=== PATIENT | male | born 1950 | race Caucasian/White ===

== ENCOUNTER 2016-12-12 05:40 | Day surgery (SDC) | payer BC, OTHER ==
[~2016-12-12] VITALS: Ht 177.8 cm; Wt 110.2 kg
--- NOTE | ~2016-12-12 | EKG ---
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 : 1950 Requested By: Bhavesh Oliva Order Number: [id number] MD: Piyush Bone Measurements Intervals [place] Rate: 55 P: 34 [place]: 165 QRS: -15 QRSD: 124 T: 29 QT: 465 QTc: 445 Interpretive Statements Sinus rhythm Nonspecific intraventricular conduction delay No previous ECG available for comparison Electronically Signed On 12-13-2016 8:07:23 CDT by Piyush Bone [email or web address] <ELECTRONICALLY SIGNED> By: Piyush Bone MD, [facility] 12/13/16 0807 09 Piyush Bone MD, FACC /EPI
--- NOTE | ~2016-12-12 | O ---
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 PROCEDURE: Right knee arthroscopy with debridement of patellofemoral chondromalacia and medial compartment chondromalacia and debridement of medial meniscus tear. HISTORY: This 66-year-old gentleman complains of progressive right knee pain. His history, clinical exam and MRI scan are consistent with moderate generalized degenerative change. This seems to be most severe in the medial compartment and at the patella with some associated degenerative tearing of the medial meniscus. He has tried conservative measures without benefit and has elected to go ahead with arthroscopic debridement. DESCRIPTION OF PROCEDURE: The patient was taken to the operating room where he was placed under general anesthesia. Prophylactic intravenous antibiotics were administered. The right knee and leg were meticulously prepped and draped and a thigh tourniquet inflated to 300 mmHg. A lateral suprapatellar inflow cannula was placed and the knee was inflated with normal saline. The arthroscope and probe were introduced and various compartments were sequentially visualized and documented with arthroscopic photography. There was some generalized synovial hypertrophy and loose cartilage debris, which was evacuated. Good visualization was established. The medial compartment reveals rather severe degenerative chondromalacia on the medial tibial plateau adjacent to the medial meniscus. There is a moderate sized area of completely exposed subchondral bone with some surrounding area of less severe degenerative chondromalacia. There was also some degenerative fraying and tearing of the medial meniscus extending back to the posterior medial corner. These areas were debrided removing the loose irregular and fragmented cartilage but leaving as much good cartilage in place as possible. The corresponding surface on the medial femoral condyle was less severely involved with grade 2 chondromalacia with fissuring and grooving but not exposed subchondral bone. This area was also gently debrided. The intercondylar notch revealed some impingement in the superior portion of the ACL and very limited notchplasty was performed. The tendon itself seems to be [address] [address] OPERATIVE REPORT Name: BRI BALLARD Maddie Room #: 150-4 [facility]#: [id number] Admission: 12/12/16 Attend Phys: Bhavesh Oliva MD Discharge: Date of : 54 Report #: [id number] intact and stable. No further debridement in this area was required. The lateral compartment reveals better cartilage throughout most of the lateral femoral condyle and the lateral tibial plateau. The lateral meniscus did demonstrate some tearing along the mid lateral portion which was debrided using a small shaver. There was one area of much deeper cartilage damage along the anterior aspect of the lateral femoral condyle. This came in contact with the anterior portion of the tibial plateau when the knee was fully extended. The patella rocks down to this area when the knee is fully flexed. This was rather small measuring about 10-12 mm in diameter but was quite deep and there seemed to be an area of some subchondral bony fracturing in this region. This was enhanced with a Kentrell pick to create a microfracture chondroplasty. The surrounding area was gently debrided and smoothed. Although this was deep and did involve subchondral bone, this area is certainly not as large or severe as the medial side. The patellar surface revealed mild to moderate generalized fraying on the patellar surface and somewhat more severe damage in the trochlear region on the distal femur. The patella seems to track nicely and seems stable, but does demonstrate some crepitus with movement consistent with some chronic chondromalacia. The suprapatellar region revealed some synovial hypertrophy which was debrided. There was mild cartilage debris, which was also evacuated. The knee was then copiously irrigated. All excess fluid was evacuated from the knee. The knee was then injected with 80 mg of Depo-Medrol and 30 mL of 0.5% Marcaine with epinephrine. The puncture sites were closed with interrupted nylon suture. A sterile dressing was applied. The patient was awakened and returned to recovery room in good condition. By: [id number] Bhavesh Oliva MD /nt
[~2016-12-12 05:40] MED LIST: ASPIR 8181 MG PO; CENTRUM SILVER1 EAC2 PO; FISH OIL 1,001000 M2 PO; HYDROCODONE-AP1 EAC6 PO; LOSARTAN POTAS100 MG PO; OMEPRAZOLE 20 M20 M1 PO; TERAZOSIN HCL10 MG PO; VITAMIN D-32000 UNIT PO; ZOCOR20 MG PO
[2016-12-12 09:47] VITALS: BP 156/93
[2016-12-12 12:49] VITALS: BP 156/93
== END 2016-12-12 12:45 | disposition home or self-care (01) ==
LOC: OR 05:40 → TBA 05:40 → OR 08:58
DX: M23.203 Derangement of unspecified medial meniscus due to old tear or injury, right knee (principal); M94.261 Chondromalacia, right knee; M67.261 Synovial hypertrophy, not elsewhere classified, right lower leg; M23.41 Loose body in knee, right knee; I10 Essential (primary) hypertension; M19.90 Unspecified osteoarthritis, unspecified site; E78.00 Pure hypercholesterolemia, unspecified; K21.9 Gastro-esophageal reflux disease without esophagitis; G47.33 Obstructive sleep apnea (adult) (pediatric); F17.210 Nicotine dependence, cigarettes, uncomplicated; Z88.2 Allergy status to sulfonamides; Z88.8 Allergy status to other drugs, medicaments and biological substances; Z98.890 Other specified postprocedural states; Z79.82 Long term (current) use of aspirin
CPT/HCPCS: 50010; 50101; 50405; 51038; 54170; 56526

== ENCOUNTER 2017-06-09 05:29 | Inpatient (IN) | payer BC, OTHER ==
[2017-06-02 08:31] LABS: URINE BILIRUBIN NEGATIVE (Negative); URINE BLOOD NEGATIVE (Negative); URINE COLOR YELLOW; URINE GLUCOSE-RANDOM* NEGATIVE (Negative); URINE KETONES NEGATIVE (Negative); URINE LEUKOCYTES-REFLEX NEGATIVE (Negative); URINE PROTEIN (DIPSTICK) NEGATIVE (Negative); URINE SPECIFIC GRAVITY <= 1.005 (1.005-1.035); URINE UROBILINOGEN 0.2 E.U./dl (0.2-1.0)
[2017-06-02 08:32] LABS: HEMATOCRIT 45.6 % (42.0-52.0); MCH 29.9 pg (26.0-34.0); MCHC 32.9 g/dL (28.0-37.0); MCV 90.7 fL (80.0-100.0); RBC 5.03 mil/uL (4.50-6.00); RDW 13.4 % (10.5-14.5); WBC 8.1 thou/uL (4.0-11.0)
[2017-06-02 08:47] LABS: CALCIUM 9.1 mg/dL (8.5-10.1); POTASSIUM 4.1 mmol/L (3.5-5.1)
[2017-06-02 09:32] LABS: INR 1.1; PROTIME 10.8 Seconds (9.3-11.4)
[2017-06-09] VITALS (9 sets, daily range): BP systolic 141–177; BP diastolic 69–104
[~2017-06-09] VITALS: Ht 177.8 cm; Wt 106.6 kg
--- NOTE | ~2017-06-09 | O ---
[facility] [place] [address] OPERATIVE REPORT Name: BRI BALLARD Room #: 416-P [facility] M.R.#: [id number] Admission: 06/09/17 Attend Phys: Bhavesh Oliva MD Discharge: Date of : 54 Report #: [id number] THIS REPORT FOR: //name// CC: Bhavesh Cruz DATE OF SERVICE: 06/09/2017 PREOPERATIVE DIAGNOSIS: Right knee degenerative arthritis. POSTOPERATIVE DIAGNOSIS: Right knee degenerative arthritis. PROCEDURE: Right total knee arthroplasty. SURGEON: Bhavesh Oliva MD. INDICATIONS: This 66-year-old gentleman has had progressive right knee pain for some time. We tried conservative measures including anti-inflammatories, cortisone injection and arthroscopic debridement without clear benefit. The arthroscopic findings and x-rays confirm rather significant degenerative change in the medial compartment with moderate change of the patella in the lateral compartments. He finds he is unable to function at work as he has too much pain to stand and walk or kneel and squat on a repetitive basis. Consequently, he has elected to go ahead with right total knee arthroplasty. DESCRIPTION OF PROCEDURE: The patient was taken to the operating room where he was placed under general anesthesia. Prophylactic intravenous antibiotics were administered. The right knee and leg were meticulously prepped and draped, and a thigh tourniquet inflated to 300 mmHg. An anterior longitudinal skin incision made. This was carried through subcutaneous tissues and fascia. The medial retinaculum was incised, and the patella was reflected laterally. Marked degenerative change in the medial compartment and moderate degenerative change at the patellofemoral compartments were noted. The Garcia and Nephew knee system was utilized. Intramedullary guides were used on both the femur and the tibia. The femur was cut in 5 degrees of valgus and the tibia cut perpendicular to the long axis of the bone. The femur seemed best suited for a size 6 right femoral component. The tibia was best suited for a size 5 baseplate, a cruciate retaining Legion style prosthesis was selected. The articular surface of the patella was resected, and a 35 mm patellar button seemed to fit nicely. A 12 mm polyethylene insert was inserted. This resulted in good sabianist of alignment and stability with satisfactory range of motion with full knee extension and flexion beyond 130 degrees. The patella seemed to track nicely throughout the arc of motion. The trial components were removed. The surfaces were thoroughly irrigated and dried. The intramedullary canal was blocked with a bone block on both the femur [address] [address] OPERATIVE REPORT Name: BRI BALLARD Room #: 416-P [facility] M.R.#: [id number] Admission: 06/09/17 Attend Phys: Bhavesh Oliva MD Discharge: Date of : 54 Report #: [id number] and the tibia. Methyl methacrylate cement was mixed. This was injected into the porous surface of the tibia. The Garcia and Nephew Nat 2 right tibial baseplate size 5 was selected. This was impacted into the proximal tibia. It seated nicely and appeared to be secure. Excess cement was removed from around its margin. A 12 mm polyethylene liner was then inserted. This seated nicely and appeared to be secure. The size 6 right cruciate retaining Legion Garcia and Nephew femoral component was then impacted on to the distal femur. It seated nicely and appeared to be secure. The patella was cemented into place using appropriate anchor holes and cement. It was secured with a patellar clamp until cement had hardened. A 35 mm patellar button was selected. Once the cement was firm, range of motion, alignment, stability were once again assessed and felt to be satisfactory. The tourniquet was then deflated after a total tourniquet time of 55 minutes. The knee was copiously irrigated. Good hemostasis was established. A single Hemovac was left in the wound exiting through a separate stab incision on the lateral side. The fascia was then closed with multiple #1 Vicryl sutures. The subcutaneous tissues were closed with 0 Monocryl. The skin was closed with skin yecenia. A sterile dressing was applied. The patient was awakened and returned to recovery room in good condition. <ELECTRONICALLY SIGNED> By: Bhavesh Oliva MD 06/10/17 0804 1200 1219 Bhavesh Oliva MD /nt
--- NOTE | ~2017-06-09 | D ---
[facility] [place] [address] DISCHARGE SUMMARY Name: BRI BALLARD Room #: 416-P [facility] M.R.#: [id number] Admission: 06/09/17 Attend Phys: Bhavesh Oliva MD Discharge: Date of : 54 Report #: [id number] THIS REPORT FOR: //name// CC: Bhavesh Cruz DATE OF SERVICE: 06/11/2017 FINAL DIAGNOSIS: Degenerative and traumatic arthritis, right knee. OPERATIVE PROCEDURE: Right total knee arthroplasty. HISTORY OF PRESENT ILLNESS: This 66-year-old gentleman complains of progressive right knee pain, which is probably the result of both degenerative and traumatic injuries to the knee. He has not seen improvement with more conservative measures including medications and arthroscopic debridement, we have elected to go ahead with right total knee arthroplasty. HOSPITAL COURSE: The patient was admitted and taken to the operating room on 06/09. He underwent a right total knee arthroplasty, which he tolerated quite nicely. Postoperatively, his course was largely unremarkable. He was able to advance quickly from IV analgesics to oral analgesics. He had a femoral nerve block, which was removed with continued good result. He was able to resume a regular diet. He was able to participate quickly with therapy and achieve independent ambulation. The knee wound appears to be healing nicely. There is no drainage, redness or warmth and only minor discomfort. He is managing quite nicely with oral hydrocodone. He has been started on Xarelto as an anticoagulation regimen. He seems safe and independent today and is anxious for hospital discharge. DISCHARGE MEDICATIONS: Include hydrocodone 10/325 one q.4 hours p.r.n. for pain and Xarelto 10 mg daily for the next 2 weeks. He will continue with independent exercise at home and begin outpatient therapy early next week. I have asked him to call or return to my office next week if there are any problems or questions and the end of the week or the following week for suture removal. By: [id number] Bhavesh Oliva MD /nt
[~2017-06-09 05:29] MED LIST changes: +CLARITIN10 MG PO
[2017-06-10 00:12] VITALS: BP 121/67
[2017-06-10 05:15] VITALS: BP 114/66
[2017-06-10 06:38] LABS: HEMATOCRIT 36.2 % (42.0-52.0); HEMOGLOBIN 12.3 gm/dL (14.0-18.0); MCH 30.5 pg (26.0-34.0); MCHC 33.9 g/dL (28.0-37.0); MCV 90.2 fL (80.0-100.0); RBC 4.02 mil/uL (4.50-6.00); RDW 13.9 % (10.5-14.5); WBC 17.3 thou/uL (4.0-11.0)
[2017-06-10 09:16] VITALS: BP 119/90
[2017-06-10 16:50] VITALS: BP 181/85
[2017-06-10 20:14] VITALS: BP 177/86
[2017-06-11 04:13] VITALS: BP 151/79
[2017-06-11 05:40] LABS: HEMATOCRIT 36.4 % (42.0-52.0); HEMOGLOBIN 12.4 gm/dL (14.0-18.0); MCH 30.6 pg (26.0-34.0); MCHC 34.1 g/dL (28.0-37.0); MCV 89.8 fL (80.0-100.0); RBC 4.06 mil/uL (4.50-6.00); RDW 13.7 % (10.5-14.5); WBC 15.1 thou/uL (4.0-11.0)
[2017-06-11 08:00] VITALS: BP 156/85
[2017-06-11 13:10] VITALS: BP 156/85
[2017-06-11] MEDS ORDERED: XARELTO10 MG PO (13:10)
== END 2017-06-11 14:34 | disposition home health service (06) | DRG 470 ==
LOC: TBA 05:29 → PRE 05:32 → 4N 12:51 → PRE 12:55 → ENTRNSPT 06-11 14:08 → EDTRNSPTSTS 06-11 14:10 → CMPTRNSPT 06-11 14:31 → 4N 06-11 14:34
PROVIDERS: Orthopaedic Surgery
PROC: 0SRC0J9 Replacement of Right Knee Joint with Synthetic Substitute, Cemented, Open Approach (ICD-10-PCS; principal; 2017-06-09)
PROC: 3E0T3BZ Introduction of Anesthetic Agent into Peripheral Nerves and Plexi, Percutaneous Approach (ICD-10-PCS; principal; 2017-06-09)
DX: M17.11 Unilateral primary osteoarthritis, right knee (principal); E78.5 Hyperlipidemia, unspecified; I10 Essential (primary) hypertension
CPT/HCPCS: 50010; 50101; 50415; 50954; 51130; 51225; 51412; 51771; 53364; 56525; 62110; 62900; 64042; 64043; 70005